=== PATIENT | female | born 1980 | race Caucasian/White ===

== ENCOUNTER → 2020-10-28 | Outpatient (CLI) | payer OTHER ==
[~2020-10-28] MED LIST: ANTIVERT 12.512.5 MG PO
[2020-10-28 08:46] LABS: HEMOGLOBIN 12.9 gm/dl (12.3-15.3); RED BLOOD COUNT 4.74 M/UL (4.00-5.10); WHITE BLOOD COUNT 7.6 K/UL (4.5-11.0)
[2020-10-28 09:17] LABS: BUN/CREATININE RATIO 24 (0-10)
== END ==
LOC: LAB 08:13
PROVIDERS: Nurse Practitioner Family
DX: R59.1 Generalized enlarged lymph nodes (principal); E53.8 Deficiency of other specified B group vitamins; E55.9 Vitamin D deficiency, unspecified; Z13.220 Encounter for screening for lipoid disorders
CPT/HCPCS: 80053; 80061; 82607; 84443; 85025

== ENCOUNTER → 2020-11-12 | Outpatient (CLI) | payer OTHER | LOC: US 13:30 | DX: R59.1 Generalized enlarged lymph nodes (principal) | CPT/HCPCS: 76536 ==

== ENCOUNTER 2020-11-26 14:03 | Emergency (ER) | payer OTHER ==
[2020-11-26 14:23] LABS: HEMOGLOBIN 12.5 gm/dl (12.3-15.3); RED BLOOD COUNT 4.64 M/UL (4.00-5.10); WHITE BLOOD COUNT 9.6 K/UL (4.5-11.0)
[2020-11-26 14:55] LABS: BUN/CREATININE RATIO 19 (0-10)
[2020-11-26] MEDS ORDERED: ANTIVERT 12.512.5 MG PO (16:42)
== END 2020-11-26 17:03 | disposition home or self-care (01) ==
LOC: ER1 14:03
PROVIDERS: Emergency Medicine
DX: R42 Dizziness and giddiness (principal); Z90.49 Acquired absence of other specified parts of digestive tract
CPT/HCPCS: 70450; 71045; 80053; 82550; 82553; 83874; 84484; 84703; 85025; 85379; 93005; 99284; J7030

== ENCOUNTER → 2021-02-16 | Outpatient (CLI) | payer OTHER ==
[~2021-02-16] MED LIST changes: +HYDROCODON-ACE1 EAC4 PO; +IBUPROFEN600 MG PO
== END ==
LOC: RAD 14:22
DX: M79.671 Pain in right foot (principal); M79.89 Other specified soft tissue disorders
CPT/HCPCS: 73630

== ENCOUNTER 2021-04-20 08:10 | Emergency (ER) | payer OTHER ==
[~2021-04-20 08:10] MED LIST changes: -HYDROCODON-ACE1 EAC4 PO; -IBUPROFEN600 MG PO
[2021-04-20] MEDS ORDERED: IBUPROFEN600 MG PO (10:26)
[2021-04-20] MEDS ORDERED: HYDROCODON-ACE1 EAC4 PO (10:29)
== END 2021-04-20 11:00 | disposition home or self-care (01) ==
LOC: ER1 08:10
DX: S92.331A Displaced fracture of third metatarsal bone, right foot, initial encounter for closed fracture (principal); S92.321A Displaced fracture of second metatarsal bone, right foot, initial encounter for closed fracture; X50.1XXA Overexertion from prolonged static or awkward postures, initial encounter; W19.XXXA Unspecified fall, initial encounter
CPT/HCPCS: 29515; 73610; 73630; 99283

== ENCOUNTER → 2021-05-19 | Outpatient (CLI) | payer OTHER ==
[~2021-05-19] MED LIST changes: +HYDROCODON-ACE1 EAC4 PO; +IBUPROFEN600 MG PO
== END ==
LOC: KOH-I 15:41
DX: S92.321A Displaced fracture of second metatarsal bone, right foot, initial encounter for closed fracture (principal); S92.331A Displaced fracture of third metatarsal bone, right foot, initial encounter for closed fracture; S92.341A Displaced fracture of fourth metatarsal bone, right foot, initial encounter for closed fracture
CPT/HCPCS: 73630

== ENCOUNTER → 2021-09-24 | Outpatient (CLI) | payer OTHER | LOC: LAB 09:34 | DX: J06.9 Acute upper respiratory infection, unspecified (principal); Z20.822 Contact with and (suspected) exposure to COVID-19 | CPT/HCPCS: 0240U ==